=== PATIENT | male | born 2000 | race Caucasian/White ===

== ENCOUNTER 2022-06-02 19:55 | Emergency (ER) | payer OTHER ==
[2022-06-02 20:04] VITALS: BP 112/75; PULSE 88; RESP 17; TEMP 98.1; BMI 24.0
[2022-06-02] MEDS ORDERED: TETRACAINE 0.5% HCL 0.6ML DROPPER.BOTTLE OU ONE (20:11)
[2022-06-02] MEDS ORDERED: FLUORESCEIN NA 1 EA STRIP OU ONE (20:11)
[2022-06-02] MEDS ORDERED: FLUORESCEIN NA 1 EA STRIP ONE (20:14)
[2022-06-02] MEDS ORDERED: TETRACAINE 0.5% OPHTH SOLN 2 ML BOTTLE ONE (20:14)
== END 2022-06-02 21:03 | disposition home or self-care (01) ==
LOC: JER 19:55
DX: Z77.098 Contact with and (suspected) exposure to other hazardous, chiefly nonmedicinal, chemicals (principal)
CPT/HCPCS: 99281-25

== ENCOUNTER 2023-03-16 00:13 | Emergency (ER) | payer OTHER ==
[2023-03-16 00:47] VITALS: BP 120/81; PULSE 88; RESP 18; TEMP 98.3; BMI 25.7
[2023-03-16 11:29] LABS: HIV INTERPRETATION NEGATIVE (NEGATIVE)
== END 2023-03-16 01:49 | disposition home or self-care (01) ==
LOC: JERFT 00:13 → JER 00:13 → JERFT 01:49
DX: Z77.098 Contact with and (suspected) exposure to other hazardous, chiefly nonmedicinal, chemicals (principal)
CPT/HCPCS: 36415; 86705; 86706; 87389; 87522; 99283-25

== ENCOUNTER 2024-01-18 18:39 | Emergency (ER) | payer OTHER ==
[2024-01-18 18:58] VITALS: BP 112/75; PULSE 78; RESP 18; TEMP 98.4; BMI 25.6
[2024-01-18] MEDS ORDERED: FAMOTIDINE 20 MG/50 ML IVPB 20 MG/50 ML MG IVPB ONE (20:18)
[2024-01-18] MEDS: FAMOTIDINE 20 MG/50 ML IVPB 20 MG/50 ML MG IVPB ONE (20:20)
[2024-01-18] MEDS: SODIUM CHLORIDE 0.9% 500 ML INFUS.BAG IV ONE (20:20)
[2024-01-18 20:44] LABS: BASO % 0.5 % (0-2.0); EOS % 1.3 % (0-4.5); HEMATOCRIT 50.5 % (35.4-49); HEMOGLOBIN 17.2 GM/dL (11.7-16.9); LYMPH % 21.5 % (8-40); MCH 30.3 pg (25.7-33.7); MEAN CELL VOLUME 88.9 fl (80-96); MEAN PLT VOLUME 8.7 fl (7.5-11.1); MONO % 6.1 % (3.8-10.2); NEUT % 70.6 % (42.8-82.8); PLATELET COUNT 223 10^3/uL (134-434); RBC 5.68 M/mm3 (4.00-5.60); RDW 13.4 % (11.9-15.9); WHITE BLOOD COUNT 7.7 K/mm3 (4.0-10.0)
[2024-01-18 20:54] LABS: INR 0.97 (0.83-1.09); PROTHROMBIN TIME (PATIENT) 11.2 SEC (9.7-13.0)
[2024-01-18 21:03] LABS: POTASSIUM 3.9 mmol/L (3.5-5.1)
[2024-01-18 21:06] LABS: ALBUMIN 4.8 g/dl (3.4-5.0); BLOOD UREA NITROGEN 13.6 mg/dL (7-18); CALCIUM 9.5 mg/dL (8.5-10.1)
== END 2024-01-18 23:42 | disposition home or self-care (01) ==
LOC: JER 18:39
PROC: 3E033GC Introduction of Other Therapeutic Substance into Peripheral Vein, Percutaneous Approach (ICD-10-PCS; principal; 2024-01-18)
DX: R07.9 Chest pain, unspecified (principal); R42 Dizziness and giddiness
CPT/HCPCS: 36415; 71046-TC-FY; 80053; 84484; 85025; 85610; 85730; 93005; 93010; 96365; 99284-25

== ENCOUNTER 2024-06-03 18:44 | Emergency (ER) | payer OTHER ==
[2024-06-03 18:51] VITALS: BP 127/83; PULSE 87; RESP 18; TEMP 97.3; BMI 26.6
[2024-06-03 19:55] LABS: BASO % 0.7 % (0-2.0); EOS % 1.9 % (0-4.5); HEMATOCRIT 47.5 % (35.4-49); HEMOGLOBIN 16.2 GM/dL (11.7-16.9); LYMPH % 27.6 % (8-40); MCH 30.4 pg (25.7-33.7); MCHC 34.2 g/dl (32.0-35.9); MEAN CELL VOLUME 88.9 fl (80-96); MEAN PLT VOLUME 8.7 fl (7.5-11.1); MONO % 5.4 % (3.8-10.2); NEUT % 64.4 % (42.8-82.8); PLATELET COUNT 212 10^3/uL (134-434); RBC 5.34 M/mm3 (4.00-5.60); RDW 13.2 % (11.9-15.9); WHITE BLOOD COUNT 6.4 K/mm3 (4.0-10.0)
[2024-06-03 20:14] LABS: ALBUMIN 4.8 g/dl (3.4-5.0); CALCIUM 9.5 mg/dL (8.5-10.1)
[2024-06-03 20:15] LABS: BLOOD UREA NITROGEN 15.4 mg/dL (7-18)
[2024-06-03 20:18] LABS: CREATININE 0.9 mg/dL (0.55-1.3); PHOSPHOROUS 4.5 mg/dL (2.5-4.9)
[2024-06-03 20:19] LABS: BILIRUBIN,TOTAL 0.7 mg/dL (0.2-1); TOT PROT 7.8 g/dl (6.4-8.2)
[2024-06-03 21:10] LABS: HIV INTERPRETATION NEGATIVE (NEGATIVE)
== END 2024-06-03 20:26 | disposition home or self-care (01) ==
LOC: JERFT 18:44
DX: Z77.21 Contact with and (suspected) exposure to potentially hazardous body fluids (principal)
CPT/HCPCS: 36415; 80053; 82465; 82977; 84100; 85025; 86704; 86803; 87340; 87389; 87517; 99283-25